=== PATIENT | female | born 1975 | race Asian ===

== ENCOUNTER 2025-08-21 13:41 | Inpatient (IN) | payer MEDICAID ==
[~2025-08-21] VITALS: Ht 152.4 cm; Wt 49.2 kg
[2025-08-21 13:44] VITALS: O2SAT 99
[2025-08-21] MEDS: SODIUM CHLORIDE 0.9% 1,000 ML IV ONE ×2 (14:08→17:41)
[2025-08-21] MEDS: ONDANSETRON HCL 4MG/2ML INJ IV ONE (14:09)
[2025-08-21 14:24] LABS: BASOPHILS % 0.7 % (0.0-2.0); EOSINOPHILS % 0.8 % (0.0-5.0); HEMATOCRIT. 38.9 % (36.0-48.0); HEMOGLOBIN. 13.1 g/dL (12.0-16.0); LYMPHOCYTES % 38.0 % (20.0-50.0); MEAN PLATELET VOLUME 8.5 fl (7.4-10.4); MONOCYTES % 6.2 % (2.0-8.0); NEUTROPHILS % 54.3 % (40.0-76.0); PLATELET 172 x1000/uL (130-400); RED BLOOD CELL COUNT 4.09 mill/uL (4.2-5.4); RED CELL DISTRIBUTION WIDTH 13.3 % (11.6-14.6)
[2025-08-21 14:43] LABS: HCG SCREEN NEGATIVE
[2025-08-21 14:44] LABS: CREATININE 0.7 mg/dL (0.6-1.0); TROPONIN I HIGH SENSITIVITY < 4 ng/L (3.0-34); UREA NITROGEN BLOOD 8 mg/dL (9-23)
[2025-08-21 14:45] LABS: ETHANOL BLOOD < 10 mg/dL (<10); PROTEIN TOTAL 6.5 g/dL (6.0-8.3)
[2025-08-21 14:46] LABS: ASPARTATE AMINOTRANSFERASE 16 IU/L (<34); BILIRUBIN DIRECT 0.2 mg/dL (<=3.0); BILIRUBIN TOTAL 0.7 mg/dL (0.1-1.0)
[2025-08-21 14:54] LABS: INR 1.0
[2025-08-21] MEDS: IOHEXOL-350 100 ML BOTTLE ONE ×2 (15:11→16:00)
[2025-08-21] MEDS: MECLIZINE 25MG TABLET PO ONE (15:26)
[2025-08-21] MEDS: ASPIRIN 81MG TABLET PO ONE (17:08)
[2025-08-21] MEDS: METOCLOPRAMIDE HCL 10MG/2ML VIAL IV ONE (17:08)
[2025-08-21] MEDS: DIPHENHYDRAMINE 50MG/ML VIAL IV ONE (17:09)
[2025-08-21] MEDS: KETOROLAC 30MG/ML VIAL IV ONE (17:12)
[2025-08-21] MEDS: ATROPINE SULFATE 1MG/ML VIAL IV ONE (19:45)
[2025-08-21 21:38] LABS: CLARITY URINE CLEAR (CLEAR); COLOR URINE YELLOW (YELLOW); GLUCOSE URINE NEGATIVE (NEGATIVE); KETONES URINE NEGATIVE (NEGATIVE); LEUKOCYTE ESTERASE URINE NEGATIVE (NEGATIVE); NITRITE URINE NEGATIVE (NEGATIVE); OCCULT BLOOD URINE NEGATIVE (NEGATIVE); PH URINE 7.0 (4.5-8.0); PROTEIN URINE NEGATIVE (NEGATIVE); SPECIFIC GRAVITY URINE 1.010 (1.005-1.030); UROBILINOGEN URINE 0.2 E.U./dL (0.2-1.0)
[2025-08-21 21:46] LABS: *AMPHETAMINES SCREEN URINE NEGATIVE (NEGATIVE); *BARBITURATES SCREEN URINE NEGATIVE (NEGATIVE); *BENZODIAZEPINES SCREEN URINE NEGATIVE (NEGATIVE)
[2025-08-21 21:47] LABS: *COCAINE SCREEN URINE NEGATIVE (NEGATIVE); CANNABINOID URINE SCREEN NEGATIVE (NEGATIVE); ECSTASY MDMA SCREEN URINE NEGATIVE (NEGATIVE); METHADONE URINE SCREEN NEGATIVE (NEGATIVE); OPIATES URINE SCREEN NEGATIVE (NEGATIVE); PHENCYCLIDINE URINE SCREEN NEGATIVE (NEGATIVE)
[2025-08-21] MEDS: NOREPINEPHRINE 8MG/250ML PMX 250 ML IV PRN (23:03)
[2025-08-22] VITALS (74 sets, daily range): BP systolic 82–153; BP diastolic 39–123; PULSE 39–68; RESP 12–30; TEMP 36.3–37; O2SAT 95–100
[2025-08-22] MEDS: HYDROCODONE/ACETAMINOPHEN 10/325MG TABLET PO NR (01:44)
[2025-08-22] MEDS: DOPAMINE 400MG/250ML PREMIX 250 ML IV PRN ×2 (02:21→09:58)
[2025-08-22] MEDS: KCL 20MEQ/100ML PREMIX 100 ML IV SCH (09:08)
[2025-08-22] MEDS: LEVOTHYROXINE SODIUM 75MCG TABLET PO SCH (09:58)
[2025-08-22 10:44] LABS: PLATELET 228 x1000/uL (130-400); RED BLOOD CELL COUNT 4.69 mill/uL (4.2-5.4); RED CELL DISTRIBUTION WIDTH 13.1 % (11.6-14.6)
[2025-08-22 10:57] LABS: CREATININE 0.6 mg/dL (0.6-1.0)
[2025-08-22 10:58] LABS: UREA NITROGEN BLOOD 5 mg/dL (9-23)
[2025-08-22] MEDS: DEXT 5%/0.9% NACL 1,000 ML IV SCH (13:38)
[2025-08-22] MEDS: POTASSIUM CHLORIDE 20MEQ TABLET SR PO NR (13:40)
[2025-08-22] MEDS ORDERED: LIDOCAINE HCL 1% 20ML VIAL ONE (14:14)
[2025-08-22] MEDS: GENTAMICIN/NS IRRIGATION 500 ML IR SCH (14:30)
[2025-08-23] VITALS (97 sets, daily range): BP systolic 68–185; BP diastolic 45–100; PULSE 39–72; RESP 5–31; TEMP 36.2–36.9; O2SAT 94–100
[2025-08-23 07:24] LABS: BASOPHILS % 0.5 % (0.0-2.0); EOSINOPHILS % 0.9 % (0.0-5.0); HEMATOCRIT. 42.5 % (36.0-48.0); HEMOGLOBIN. 14.4 g/dL (12.0-16.0); LYMPHOCYTES % 31.3 % (20.0-50.0); MEAN PLATELET VOLUME 8.9 fl (7.4-10.4); MONOCYTES % 6.1 % (2.0-8.0); NEUTROPHILS % 61.2 % (40.0-76.0); PLATELET 212 x1000/uL (130-400); RED BLOOD CELL COUNT 4.49 mill/uL (4.2-5.4); RED CELL DISTRIBUTION WIDTH 13.0 % (11.6-14.6)
[2025-08-23 07:37] LABS: CREATININE 0.6 mg/dL (0.6-1.0)
[2025-08-23 07:38] LABS: UREA NITROGEN BLOOD 7 mg/dL (9-23)
[2025-08-23] MEDS: NOREPINEPHRINE 8MG/250ML PMX 250 ML IV PRN (09:52)
[2025-08-23 12:05] LABS: T4 FREE 1.31 ng/dL (0.89-1.76)
[2025-08-23] MEDS: DOPAMINE 400MG/250ML PREMIX 250 ML IV PRN (21:33)
[2025-08-23] MEDS ORDERED: ATROPINE SULFATE 1MG/10ML SYR IV PRN (22:00)
[2025-08-24] VITALS: BP 90/62; PULSE 58; RESP 18; TEMP 36.2; O2SAT 97
[2025-08-24 00:01] VITALS: BP 90/62; PULSE 60; RESP 13; TEMP 97.3
[2025-08-24 00:15] VITALS: BP 91/65; PULSE 54; RESP 16
[2025-08-24 00:30] VITALS: BP 101/69; PULSE 70; RESP 13; O2SAT 100
== END 2025-08-24 01:00 | disposition short-term general hospital (02) | DRG 201 ==
LOC: ER 13:41 → EDBEDREQ 17:05 → EDBEDREQTM 17:05 → MICUSO 20:09 → EDBEDREQTM 20:32 → EDBEDREQSVC 20:32 → EDBEDREQDT 08-22 00:49 → EDBEDREQTM 08-22 00:49 → EDBEDREQSVC 08-22 00:49 → ENRESERV 08-22 06:10
PROVIDERS: ADMIT Internal Medicine; ATTEND Internal Medicine
PROC: GZ56ZZZ Individual Psychotherapy, Supportive (ICD-10-PCS; principal; 2025-08-23)
DX: R00.1 Bradycardia, unspecified (principal); G92.8 Other toxic encephalopathy; E03.9 Hypothyroidism, unspecified; F32.A Depression, unspecified; E87.6 Hypokalemia; H53.2 Diplopia; F41.9 Anxiety disorder, unspecified; Z79.899 Other long term (current) drug therapy
CPT/HCPCS: 36415; 70496; 70498; 71045; 80048; 80076; 80305; 80320; 81003; 82550; 83605; 83735; 84439; 84443; 84480; 84484; 84703; 85025; 85027; 86850; 86900; 93005; 93306; 93970; 99291; A4565; J0461; J1200; J1265; J1885; J2003; J2405; J2765; J3480; J3490; J7030; J7042; J8597; Q9967; G0480